=== PATIENT | male | born 2005 | race Two or more races ===

== ENCOUNTER 2025-03-26 20:36 | Emergency (ER) | payer OTHER ==
[~2025-03-26] VITALS: Ht 165.1 cm; Wt 67.5 kg
[2025-03-26] MEDS ORDERED: CYCLOBENZAPRINE HCL 10 MG TAB PO ONE (21:15)
--- NOTE | 2025-03-26 22:51 | DVH ---
INDICATION: LBP, hyperextension injury at work TECHNIQUE: 4 views of the lumbar spine were obtained. COMPARISON: None FINDINGS: There are no acute fractures or subluxations. Disc spaces fairly well maintained. IMPRESSION: No acute fracture or subluxation.
[2025-03-27] MEDS ORDERED: ACET-1881 PO (00:01)
[2025-03-27] MEDS ORDERED: CYCL-837 PO (00:01)
[2025-03-27] MEDS ORDERED: IBUP1TAB5 PO (00:01)
--- NOTE | 2025-03-27 00:02 | ED.PDOC ---
History of Present Illness HPI Comments 19-year-old male with no past medical history presenting for evaluation of lower back pain over the past day. States that yesterday he was at work and was told that he needed to package pick up a heavy Pallet on his own. He states that when he went to pick it up he lifted it up and hyperextended his back. Patient reports feeling a weird sensation when this occurred. Did not fall back and hit his back directly. Patient then went home. He then started to notice that his pain has increased over the past day. No numbness, weakness down the extremities. Has not taken anything for his discomfort. Chief Complaint: Back Pain Time Seen by MD: 20:41 Allergies: Coded Allergies: No Known Drug Allergy (Verified Allergy, Unknown, 03/26/25) Home Meds Active Scripts Cyclobenzaprine Hcl (Cyclobenzaprine Hcl) 5 Mg Tab, 5 MG PO Q8HPRN PRN, #10 TAB Prov:THOMAS SANTIAGO MD 03/27/25 Acetaminophen (Acetaminophen) 325 Mg Tab, 650 MG PO Q6HPRN PRN, #60 TAB Prov:THOMAS SANTIAGO MD 03/27/25 Ibuprofen Micronized (Ibuprofen) 600 Mg Tab, 600 MG PO Q6HPRN PRN, #30 TAB Prov:THOMAS SANTIAGO MD 03/27/25 Mode of Arrival: Ambulatory Past Medical History PAST MEDICAL HISTORY: Denies Family History Family History: Reviewed,noncontributory to illness Social History Smoker: Non-Smoker Drugs: Denies Drug Use Lives In: Home Constitutional: denies: chills, diaphoresis, fatigue, fever, malaise, sweats, weakness, others EENTM: denies: blurred vision, double vision, ear bleeding, ear discharge, ear drainage, ear pain, ear ringing, eye pain, eye redness, hearing loss, mouth pain, mouth swelling, nasal discharge, nose bleeding, nose congestion, nose pain, photophobia, tearing, throat pain, throat swelling, voice changes, others Respiratory: denies: cough, hemoptysis, orthopnea, SOB at rest, shortness of breath, SOB with excertion, stridor, wheezing, others Cardiovascular: denies: chest pain, dizzy spells, diaphoresis, Dyspnea on exertion, edema, irregular heart beat, left arm pain, lightheadedness, palpitations, PND, syncope, others Gastrointestinal: denies: abdomen distended, abdominal pain, blood streaked bowels, constipated, diarrhea, dysphagia, difficulty swallowing, hematemesis, melena, nausea, poor appetite, poor fluid intake, rectal bleeding, rectal pain, vomiting, others Genitourinary: denies: burning, dysuria, flank pain, frequency, hematuria, incontinence, penile discharge, penile sore, pain, testicle pain, testicle swelling, urgency, others Neurological: denies: dizziness, fainting, headache, left sided numbness, left sided weakness, numbness, paresthesia, pre-existing deficit, right sided numbness, right sided weakness, seizure, speech problems, tingling, tremors, weakness, others Musculoskeletal: reports: back pain, muscle pain; denies: gout, joint pain, joint swelling, muscle stiffness, neck pain, others Integumetry: denies: bruises, change in color, change in hair/nails, dryness, laceration, lesions, lumps, rash, wounds, others Allergic/Immunocompromised: denies: Difficulty Healing, Frequent Infections, Hives, Itching, others Hematologic/Lymphatic: denies: anemia, blood clots, easy bleeding, easy bruising, swollen glands, others Endocrine: denies: excessive hunger, excessive sweating, excessive thirst, excessive urination, flushing, intolerance to cold, intolerance to heat, unexplained weight gain, unexplained weight loss, others Psychiatric: denies: anxiety, bipolar disorder, depression, hopeless, panic disorder, schizophrenia, sleepless, suicidal, others All Other Systems: Reviewed and Negative Physical Exam General Appearance: None, Normal HEENT: Normal ENT Inspection Neck: None, Non-Tender, Normal Inspection Respiratory: No Accessory Muscle Use, No Respiratory Distress, Normal Breath Sounds Cardiovascular: No Edema, Normal Peripheral Pulses, Regular Rate/Rhythm Breast Exam: Deferred Gastrointestinal: Non Tender, Normal Bowel Sounds Genitalia: Deferred Pelvic: Deferred Rectal: Deferred Extremities: Normal inspection, Normal range of motion, Non-tender Musculoskeletal : Location: Bilateral Extremity Location: Back, Other (bilateral lower lumbar paraspinal muscle ttp) Neurologic: Alert, No Motor Deficits, No Sensory Deficits Cerebellar Function: Normal Reflexes: Normal Skin: Normal Color Lymphatic: No Adenopathy Was a procedure done? Was a procedure done?: No Differential Dx Considerations may include: lumbar fracture vs muscle spasm vs herniated disc X-Ray, Labs, Meds, VS Vital Signs Date Time Temp Pulse Resp B/P (MAP) Pulse Ox O2 Delivery O2 Flow Rate FiO2 03/27/25 01:11 60 20 99 Room Air* 0 21 03/27/25 01:09 98.0 03/27/25 00:50 97.5 60 20 115/86 (96) 99 97.5 03/26/25 22:57 97.7 60 20 120/76 (91) 100 97.7 03/26/25 20:38 97.0 52 16 126/80 99 97.0 Current Medications Medications (Trade) Dose Ordered Sig/Ingrid Route Start Time Stop Time Status Last Admin Acetaminophen (Tylenol Tablet) 650 mg ONCE ONCE PO 03/26/25 21:15 03/26/25 21:16 DC 03/27/25 01:09 Ketorolac Tromethamine (Toradol Injection) 30 mg ONCE ONCE IM 03/26/25 21:15 03/26/25 21:16 DC 03/27/25 01:08 Lidocaine (Lidoderm 5% Topical Patch) 1 patch ONCE ONCE TOP 03/26/25 21:15 03/26/25 21:16 DC 03/27/25 01:09 Cyclobenzaprine HCl (Flexeril Tablet) 5 mg ONCE ONCE PO 03/26/25 21:30 03/26/25 21:31 DC 03/27/25 01:09 Time of 1ST Reevaluation: 23:54 Reevaluation 1ST: Improved Patient Education/Counseling: Diagnosis, Treatment, Need For Follow Up Family Education/Counseling: Diagnosis, Treatment, Need For Follow Up SEPSIS Sepsis Screen Date sepsis recognized/suspect: Mar 26, 2025 Time Sepsis recognized/suspect: 2039 Recent Procedure: No On Antibiotic Therapy: No Respiratory Rate >20: No Heart Rate >90: No Temp<36 C (96.8 F) or >38.3 C: No SBP <90 or MAP <65 mmHG: No New Acute Mental Status Change: No Is the patient on CPAP, BIPAP,: No Physician Orders Lumbar Spine 3 View (03/26/25 21:21) Vital Signs Date Time Temp Pulse Resp B/P (MAP) Pulse Ox O2 Delivery O2 Flow Rate FiO2 03/27/25 01:11 60 20 99 Room Air* 0 21 03/27/25 01:09 98.0 03/27/25 00:50 97.5 60 20 115/86 (96) 99 97.5 03/26/25 22:57 97.7 60 20 120/76 (91) 100 97.7 03/26/25 20:38 97.0 52 16 126/80 99 97.0 Medications Medications Dose Ordered Sig/Ingrid Route Start Time Stop Time Status Last Admin Dose Admin Acetaminophen 650 mg ONCE ONCE PO 03/26/25 21:15 03/26/25 21:16 DC 03/27/25 01:09 Cyclobenzaprine HCl 5 mg ONCE ONCE PO 03/26/25 21:30 03/26/25 21:31 DC 03/27/25 01:09 Ketorolac Tromethamine 30 mg ONCE ONCE IM 03/26/25 21:15 03/26/25 21:16 DC 03/27/25 01:08 Lidocaine 1 patch ONCE ONCE TOP 03/26/25 21:15 03/26/25 21:16 DC 03/27/25 01:09 Departure 1 Departure Time of Disposition: 23:55 (Year old male with no past medical history presenting for evaluation of lower back pain over the past day after the patient was lifting a heavy item yesterday. Patient felt as if he hyperextended his back, for this reason lumbar spine x-rays were performed which are negative for any underlying fractures. Patient arrives with normal neuro/motor examination. Denying any radiation of pain down to the legs. Consider but do not suspect herniated disc or ligamentous injury. For this reason does not warrant emergent MR imaging of the lumbar spine. Patient likely with lumbar muscle spasm related to the injury itself. Was treated here with IM Toradol, oral Tylenol, oral Flexeril and topical lidocaine patch. Feeling improved after interventions. Patient is stable for discharge further outpatient workup and management by primary care doctor, worker's comp. Will be given a prescription for Tylenol, ibuprofen, Flexeril.) Impression: Primary Impression: Low back pain Additional Impression: Lumbar paraspinal muscle spasm Disposition: HOME / SELF CARE / HOMELESS Condition: Stable Additional Instructions: You were evaluated today for lower back pain after a lifting injury. X-rays of the lumbar spine were performed which are within normal limits. However, you are likely having muscle spasms related to the injury. You were given a prescription for Tylenol, ibuprofen to take as needed for discomfort. If you like the lidocaine patches that were applied to back you may purchase some [id number] as Salonpas. You were also given a prescription for some muscle relaxants (flexeril) to take as needed if pain worsens despite Tylenol and ibuprofen. e-Prescriptions Cyclobenzaprine Hcl (Cyclobenzaprine Hcl) 5 Mg Tab 5 MG PO Q8HPRN PRN, #10 TAB Prov: THOMAS SANTIAGO MD 03/27/25 Acetaminophen (Acetaminophen) 325 Mg Tab 650 MG PO Q6HPRN PRN, #60 TAB Prov: THOMAS SANTIAGO MD 03/27/25 Ibuprofen Micronized (Ibuprofen) 600 Mg Tab 600 MG PO Q6HPRN PRN, #30 TAB Prov: THOMAS SANTIAGO MD 03/27/25 Discharged With: Self, Relative (Mother) Critical Care Note Critical Care Time?: No Stability Stability form required: No THOMAS SANTIAGO MD Mar 27, 2025 00:02
[2025-03-27 00:50] VITALS: BP 115/86
[2025-03-27] MEDS: KETOROLAC TROMETH 60MG/2ML VIAL IM ONE (01:08)
[2025-03-27 01:09] VITALS: TEMP 98
[2025-03-27] MEDS: LIDOCAINE 5% TOPICAL PATCH TOP ONE (01:09)
[2025-03-27] MEDS: CYCLOBENZAPRINE HCL 10 MG TAB PO ONE (01:09)
[2025-03-27] MEDS: ACETAMINOPHEN 325 MG TAB PO ONE (01:09)
[2025-03-27 01:11] VITALS: PULSE 60; RESP 20; O2SAT 99
== END 2025-03-27 01:13 | disposition home or self-care (01) ==
LOC: ER 20:36 → EEVIPCON 20:36 → ER 03-27 01:13
DX: M54.50 Low back pain, unspecified (principal); M62.830 Muscle spasm of back; Z79.899 Other long term (current) drug therapy
CPT/HCPCS: 72100; 96372; 99284; J1885